=== PATIENT | male | born 1930 | race Caucasian/White ===

== ENCOUNTER 2017-10-02 13:32 | Emergency (ER) | payer OTHER, MEDICARE, BC ==
[~2017-10-02] VITALS: Ht 170.2 cm; Wt 45.4 kg
[~2017-10-02 13:32] MED LIST: CLOBETASOL PROP50 M1 TOP; COLACE100 MG PO; HYTRIN 2MG CAPSU2 M1 PO; HYTRIN 5 M5 MG/1 CAP PO; LIDODERM 5%1 PATC1 TRANSDERM; MIDODRINE HCL 55 M1 PO; MIRALAX17 GM PO; PREDNISONE 20 M20 M1 PO; PROSCAR 5MG TABL5 MG PO; REMERON15 MG PO; SIMVASTATIN20 MG PO; TERAZOSIN HCL10 MG PO; VANCOMYCIN500 MG/VIA HEMODIALYS; VITAMIN D1000 UNI1 PO; ZPAK PO
[2017-10-02] MEDS ORDERED: SIMVASTATIN20 MG PO (13:51)
[2017-10-02 16:01] VITALS: BP 123/53
== END 2017-10-02 16:02 | disposition home or self-care (01) ==
LOC: M.ERS 13:32
DX: S09.90XA Unspecified injury of head, initial encounter (principal); S00.81XA Abrasion of other part of head, initial encounter; S20.319A Abrasion of unspecified front wall of thorax, initial encounter; S80.212A Abrasion, left knee, initial encounter; S80.211A Abrasion, right knee, initial encounter; N18.6 End stage renal disease; Z99.2 Dependence on renal dialysis; W18.30XA Fall on same level, unspecified, initial encounter; Y93.B2 Activity, push-ups, pull-ups, sit-ups; Y92.098 Other place in other non-institutional residence as the place of occurrence of the external cause; Y99.8 Other external cause status

== ENCOUNTER 2017-12-25 12:28 | Emergency (ER) | payer OTHER, MEDICARE, BC ==
[~2017-12-25] VITALS: Ht 180.3 cm; Wt 44.0 kg
[2017-12-25] MEDS ORDERED: REMERON15 MG PO (12:44)
[2017-12-25 13:15] LABS: ABSOLUTE BASOPHILS 0.1 thou/uL (0.0-0.2); ABSOLUTE EOSINOPHILS 0.4 thou/uL (0.0-0.7); ABSOLUTE LYMPHOCYTES 1.3 thou/uL (0.8-5.3); ABSOLUTE MONOCYTES 0.5 thou/uL (0.0-1.2); ABSOLUTE NEUTROPHILS 8.9 thou/uL (1.6-8.1); BASOPHILS 0.7 %; EOSINOPHILS 3.9 %; HEMOGLOBIN 10.5 gm/dL (14.0-18.0); LYMPHOCYTES 11.2 %; MCH 32.9 pg (26.0-34.0); MCV 99.8 fL (80.0-100.0); MONOCYTES 4.6 %; MPV 10.5 fl. (7.2-11.1); NUCLEATED RBCS 0 /100WBC; PLATELET COUNT* 120 thou/uL (150-400); POLYS 79.6 %; RBC 3.21 mil/uL (4.50-6.00); RDW-CV 16.1 % (10.5-14.5); WBC 11.2 thou/uL (4.0-11.0)
[2017-12-25 13:27] LABS: APTT 26.7 Seconds (25.0-31.3); INR 1.1; PROTIME 10.7 Seconds (9.20-11.50)
[2017-12-25 13:28] LABS: ANION GAP 6 mmol/L (7-16); BUN 22 mg/dL (7-18); CHLORIDE 102 mmol/L (98-107); CO2 34 mmol/L (21-32); CREATININE 3.7 mg/dL (0.6-1.3); GLUCOSE 107 mg/dL (70-99); POTASSIUM 3.8 mmol/L (3.5-5.1); SODIUM 142 mmol/L (136-145)
[2017-12-25 13:38] LABS: ALBUMIN 2.9 g/dL (3.4-5.0); ALKALINE PHOSPHATASE 59 U/L (46-116); LIPASE 138 U/L (73-393); NT-PRO BRAIN NAT PEPTIDE 9366 pg/mL (<300); SGOT 16 U/L (15-37); SGPT 12 U/L (30-65); TOTAL BILIRUBIN 0.6 mg/dL (<0.1-1.0); TOTAL PROTEIN 7.6 g/dL (6.4-8.2); TROPONIN-I LEVEL <0.06 ng/mL (<0.06)
[2017-12-25 14:55] VITALS: BP 114/50
--- NOTE | 2017-12-26 14:46 | EKG ---
[place] [address] ELECTROCARDIOGRAM REPORT Name: ISAURA ROBBINS [id number] Admission: 12/25/17 Attend Phys: Discharge: 12/25/17 Date of : [birth year] Report #: [id number] THIS REPORT FOR: //name// [facility] ED Test Date: 2017-12-25 Test Time: 12:34:54 Pat Name: ISAURA ROBBINS Department: Room: Gender: M [employer] Receivable Executive: LEESA : 1930 Requested By: Dorothy Pat Order Number: [id number] MD: Tam Garrido Measurements Intervals [place] Rate: 101 P: OK: QRS: -29 QRSD: 125 T: 150 QT: 369 QTc: 479 Interpretive Statements Sinus rhythm with pac's 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
== END 2017-12-25 14:56 | disposition home or self-care (01) ==
LOC: M.ERS 12:28
PROVIDERS: Personal Emergency Response Attendant
DX: R07.89 Other chest pain (principal); N18.6 End stage renal disease; Z86.2 Personal history of diseases of the blood and blood-forming organs and certain disorders involving the immune mechanism; Z99.2 Dependence on renal dialysis; Z98.890 Other specified postprocedural states